=== PATIENT | male | born 1970 | race Caucasian/White ===

== ENCOUNTER 2021-02-27 11:34 | Inpatient (IN) | payer BC ==
[2021-02-27] MEDS ORDERED: Sodium Chloride 0.9% 10 ML Syringe FLUSH PRN (12:14)
[2021-02-27] MEDS ORDERED: Ondansetron 4 MG/2 ML SDV IVPUSH ONE (12:56)
[2021-02-27] MEDS ORDERED: Dexamethasone 4 MG Tab PO ONE (12:56)
--- NOTE | 2021-02-27 13:38 | CR ---
Chest: Portable view of the chest was obtained. Comparison: No prior chest imaging is available. Patchy areas of increased density are seen peripherally within the right upper and right lower lung. Left lung shows minimal density. Heart size and mediastinum are normal. Bony structure shows nothing acute. Impression: 1. Findings compatible with mild COVID pneumonia. Diagnostic code #3
--- NOTE | 2021-02-27 13:54 | EDM.PDOC ---
ED HPI GENERAL MEDICAL PROBLEM - General Chief Complaint: Respiratory Problem Stated Complaint: COVID POSITIVE/WORSENING SYMPTOMS Time Seen by Provider: 02/27/21 12:13 Source of Information: Reports: Patient, RN Notes Reviewed History Limitations: Reports: No Limitations - History of Present Illness INITIAL COMMENTS - FREE TEXT/NARRATIVE: Patient is a 50-year-old male presenting to the emergency department with complaints of worsening of Covid symptoms. Reports that he began to develop symptoms of Covid last weekend. He was tested earlier this week and found to be Covid positive. He reports body aches, subjective fever, nausea, cough, and shortness of breath. Reports that he has not been able to eat or drink much for the last few days. He has not been prescribed any medications previously for treatment of COVID-19. He did not receive his Covid vaccination. Patient denies any chronic underlying medical conditions. Arrival to ER, patient was found to be hypoxic with an oxygen saturation of 83 to 84% on room air. He was slightly tachypneic at 22. Vital signs were otherwise well. Triage nurse placed the patient on 2 L of oxygen he is currently saturating in the low 90s. 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 Generalized Pain Score (Numeric/FACES): 9 Headache Pain Score (Numeric/FACES): 0 - Related Data Allergies Allergy/AdvReac Type Severity Reaction Status Date / Time amoxicillin Allergy Other Verified 02/27/21 12:11 Penicillins Allergy Other Verified 02/27/21 12:11 Home Meds: Home Meds Allopurinol [Zyloprim] 300 mg PO DAILY 02/27/21 [History] Past Medical History - Past Health History Medical/Surgical History: Denies Medical/Surgical History Musculoskeletal History: Reports: Gout - Infectious Disease History Infectious Disease History: Reports: Novel Coronavirus Social & Family History - Tobacco Use Tobacco Use Status *Q: Never Tobacco User Second Hand Smoke Exposure: No - Caffeine Use Caffeine Use: Reports: None - Recreational Drug Use Recreational Drug Use: No ED ROS GENERAL - Review of Systems Review Of Systems: See Below Constitutional: Reports: Fever, Chills, Decreased Appetite HEENT: Reports: No Symptoms Respiratory: Reports: Shortness of Breath, Cough Cardiovascular: Reports: No Symptoms Endocrine: Reports: No Symptoms GI/Abdominal: Reports: Nausea. Denies: Abdominal Pain, Diarrhea, Vomiting : Reports: No Symptoms Musculoskeletal: Reports: Other (generalized body aches) Skin: Reports: No Symptoms Neurological: Reports: No Symptoms Psychiatric: Reports: No Symptoms Hematologic/Lymphatic: Reports: No Symptoms Immunologic: Reports: No Symptoms ED EXAM, GENERAL - Physical Exam Exam: See Below Exam Limited By: No Limitations General Appearance: Alert, WD/WN, No Apparent Distress Respiratory/Chest: No Respiratory Distress, No Accessory Muscle Use, Chest Non- Tender, Crackles (faint fine crackles to bilateral bases) Cardiovascular: Normal Peripheral Pulses, Regular Rate, Rhythm, No Edema, No Gallop, No JVD, No Murmur, No Rub GI/Abdominal: Normal Bowel Sounds, Soft, Non-Tender, No Organomegaly, No Distention, No Abnormal Bruit, No Mass Neurological: Alert, Oriented, CN II-XII Intact, Normal Cognition, Normal Gait, Normal Reflexes, No Motor/Sensory Deficits Psychiatric: Normal Affect, Normal Mood Skin Exam: Warm, Dry, Intact, Normal Color, No Rash #1 Interpretation EKG Date: 02/27/21 Time: 12:22 Rhythm: NSR Rate (Beats/Min): 91 Amonate: Normal P-Wave: Present QRS: Normal ST-T: Normal QT: Normal Course - Vital Signs Last Recorded V/S: Last Vital Signs Temp 97.9 F 03/01/21 08:15 Pulse 66 03/01/21 08:15 Resp 20 03/01/21 08:15 BP 117/82 03/01/21 08:15 Pulse Ox 92 L 03/01/21 05:33 - Orders/Labs/Meds Orders: Medication Orders Acetaminophen (Acetaminophen 325 Mg Tab) 650 mg PO Q4H PRN PRN Reason: Pain (Mild 1-3)/fever Last Admin: 02/27/21 15:59 Dose: 650 mg Documented by: ASHER Albuterol/Ipratropium (Albuterol/Ipratropium 3.0-0.5 Mg/3 Ml Neb Soln) 3 ml NEB Q4H PRN PRN Reason: Shortness Of Breath/wheezing Allopurinol (Allopurinol 300 Mg Tab) 300 mg PO DAILY AURELIA Last Admin: 03/01/21 08:00 Dose: 300 mg Documented by: Admin: 02/28/21 10:52 Dose: Not Given Documented by: ASHER Dexamethasone (Dexamethasone 4 Mg Tab) 6 mg PO DAILY [facility] Last Admin: 03/01/21 08:01 Dose: 6 mg Documented by: Admin: 02/28/21 10:52 Dose: Not Given Documented by: ASHER Docusate Sodium (Docusate Sodium 100 Mg Cap) 100 mg PO BID PRN PRN Reason: Constipation Enoxaparin Sodium (Enoxaparin 40 Mg/0.4 Ml Syringe) 40 mg SUBCUT DAILY [facility] Last Admin: 03/01/21 08:01 Dose: 40 mg Documented by: Admin: 02/28/21 10:52 Dose: Not Given Documented by: Admin: 02/27/21 16:00 Dose: 40 mg Documented by: ASHER Remdesivir 100 mg/ Sodium (Chloride) 100 mls @ 100 mls/hr IV Q24H [facility] Stop: 03/03/21 16:59 Last Admin: 03/01/21 12:05 Dose: 100 mls/hr Documented by: Infusion: 02/28/21 17:36 Dose: 100 mls/hr Documented by: Admin: 02/28/21 16:36 Dose: 100 mls/hr Documented by: SHABANA Azithromycin 500 mg/ Sodium (Chloride) 250 mls @ 250 mls/hr IV Q24H [facility] Last Admin: 03/01/21 13:19 Dose: 250 mls/hr Documented by: Infusion: 02/28/21 18:45 Dose: 250 mls/hr Documented by: Admin: 02/28/21 17:45 Dose: 250 mls/hr Documented by: Infusion: 02/27/21 19:10 Dose: 250 mls/hr Documented by: Admin: 02/27/21 18:10 Dose: 250 mls/hr Documented by: ASHER Insulin Human Lispro (Insulin Lispro 100 Unit/Ml 10 Ml Vial) 0 unit SUBCUT QIDACANDBED [facility]; Protocol Last Admin: 03/01/21 11:44 Dose: 6 units Documented by: Admin: 03/01/21 07:59 Dose: 4 units Documented by: Admin: 02/28/21 21:38 Dose: 8 units Documented by: Admin: 02/28/21 16:59 Dose: 10 units Documented by: SHABANA Metformin HCl (Metformin 500 Mg Tab) 500 mg PO BIDMEALS [facility] Last Admin: 03/01/21 06:17 Dose: Not Given Documented by: Admin: 03/01/21 05:36 Dose: 500 mg Documented by: Admin: 02/28/21 16:58 Dose: 500 mg Documented by: SHABANA Ondansetron HCl (Ondansetron 4 Mg Tab.Dis) 4 mg PO Q4H PRN PRN Reason: nausea, able to take PO Last Admin: 02/27/21 16:00 Dose: 4 mg Documented by: ASHER Oxycodone HCl (Oxycodone 5 Mg Tab) 5 mg PO Q4H PRN PRN Reason: Pain (moderate 4-6) Sodium Chloride (Sodium Chloride 0.9% 10 Ml Syringe) 10 ml FLUSH ASDIRECTED PRN PRN Reason: Keep Vein Open Last Admin: 02/27/21 12:57 Dose: 10 ml Documented by: VIKAS Temazepam (Temazepam 15 Mg Cap) 15 mg PO BEDTIME PRN PRN Reason: Sleep Last Admin: 02/28/21 21:39 Dose: 15 mg Documented by: MARKY Zinc Sulfate (Zinc Sulfate 220 Mg Cap) 220 mg PO DAILY [facility] Last Admin: 03/01/21 08:00 Dose: 220 mg Documented by: Admin: 02/28/21 10:52 Dose: Not Given Documented by: ASHER Labs: Laboratory Tests 02/27/21 02/27/21 02/27/21 Range/Units 10:30 10:30 10:30 WBC 6.36 (4.23-9.07) K/mm3 RBC 5.22 (4.63-6.08) M/mm3 Hgb 16.0 (13.7-17.5) gm/dl Hct 46.6 (40.1-51.0) % MCV 89.3 (79.0-92.2) fl MCH 30.7 (25.7-32.2) pg MCHC 34.3 (32.2-35.5) g/dl RDW Std Deviation 42.7 (35.1-43.9) fL Plt Count 211 (163-337) K/mm3 MPV 9.6 (9.4-12.3) fl Neut % (Auto) 76.1 H (34.0-67.9) % Lymph % (Auto) 16.5 L (21.8-53.1) % Worth % (Auto) 6.9 (5.3-12.2) % Eos % (Auto) 0 L (0.8-7.0) Baso % (Auto) 0.3 (0.1-1.2) % Neut # (Auto) 4.84 (1.78-5.38) K/mm3 Lymph # (Auto) 1.05 L (1.32-3.57) K/mm3 Worth # (Auto) 0.44 (0.30-0.82) K/mm3 Eos # (Auto) 0.00 L (0.04-0.54) K/mm3 Baso # (Auto) 0.02 (0.01-0.08) K/mm3 Manual Slide Review Not Reportable D-Dimer, Quantitative 0.26 (0.19-0.50) mg/L Sodium 131 L (136-145) mEq/L Potassium 4.2 (3.5-5.1) mEq/L Chloride 93 L (98-107) mEq/L Carbon Dioxide 30 (21-32) mEq/L Anion Gap 12.2 (5-15) BUN 12 (7-18) mg/dL Creatinine 1.2 (0.7-1.3) mg/dL Est Cr Clr Drug Dosing 80.83 mL/min Estimated GFR (MDRD) > 60 (>60) mL/min BUN/Creatinine Ratio 10.0 L (14-18) Glucose 224 H (70-99) mg/dL Calcium 8.6 (8.5-10.1) mg/dL Total Bilirubin 0.5 (0.2-1.0) mg/dL AST 39 H (15-37) U/L ALT 66 H (16-63) U/L Alkaline Phosphatase 77 (46-116) U/L Troponin I < 0.017 (0.00-0.056) ng/mL C-Reactive Protein 7.5 H* (<1.0) mg/dL NT-Pro-B Natriuret Pep (0-125) pg/mL Total Protein 7.9 (6.4-8.2) g/dl Albumin 3.7 (3.4-5.0) g/dl Globulin 4.2 gm/dL Albumin/Globulin Ratio 0.9 L (1-2) SARS-CoV-2 RNA (DAYRON) (NEGATIVE) 02/27/21 02/27/21 Range/Units 10:30 10:30 WBC (4.23-9.07) K/mm3 RBC (4.63-6.08) M/mm3 Hgb (13.7-17.5) gm/dl Hct (40.1-51.0) % MCV (79.0-92.2) fl MCH (25.7-32.2) pg MCHC (32.2-35.5) g/dl RDW Std Deviation (35.1-43.9) fL Plt Count (163-337) K/mm3 MPV (9.4-12.3) fl Neut % (Auto) (34.0-67.9) % Lymph % (Auto) (21.8-53.1) % Worth % (Auto) (5.3-12.2) % Eos % (Auto) (0.8-7.0) Baso % (Auto) (0.1-1.2) % Neut # (Auto) (1.78-5.38) K/mm3 Lymph # (Auto) (1.32-3.57) K/mm3 Worth # (Auto) (0.30-0.82) K/mm3 Eos # (Auto) (0.04-0.54) K/mm3 Baso # (Auto) (0.01-0.08) K/mm3 Manual Slide Review D-Dimer, Quantitative (0.19-0.50) mg/L Sodium (136-145) mEq/L Potassium (3.5-5.1) mEq/L Chloride (98-107) mEq/L Carbon Dioxide (21-32) mEq/L Anion Gap (5-15) BUN (7-18) mg/dL Creatinine (0.7-1.3) mg/dL Est Cr Clr Drug Dosing mL/min Estimated GFR (MDRD) (>60) mL/min BUN/Creatinine Ratio (14-18) Glucose (70-99) mg/dL Calcium (8.5-10.1) mg/dL Total Bilirubin (0.2-1.0) mg/dL AST (15-37) U/L ALT (16-63) U/L Alkaline Phosphatase (46-116) U/L Troponin I (0.00-0.056) ng/mL C-Reactive Protein (<1.0) mg/dL NT-Pro-B Natriuret Pep 28 (0-125) pg/mL Total Protein (6.4-8.2) g/dl Albumin (3.4-5.0) g/dl Globulin gm/dL Albumin/Globulin Ratio (1-2) SARS-CoV-2 RNA (DAYRON) Positive H (NEGATIVE) Meds: Medications Generic Name Dose Route Start Last Admin Trade Name Freq PRN Reason Stop Dose Admin Acetaminophen 650 mg 02/27/21 14:19 02/27/21 15:59 Acetaminophen 325 Mg Tab PO 650 mg Q4H PRN Administration Pain (Mild 1-3)/fever Albuterol/Ipratropium 3 ml 02/27/21 14:19 Albuterol/Ipratropium 3.0-0.5 Mg/3 Ml Neb Soln NEB Q4H PRN Shortness Of Breath/wheezing Allopurinol 300 mg 02/28/21 09:00 03/01/21 08:00 Allopurinol 300 Mg Tab PO 300 mg DAILY AURELIA Administration Dexamethasone 6 mg 02/28/21 09:00 03/01/21 08:01 Dexamethasone 4 Mg Tab PO 6 mg DAILY AURELIA Administration Docusate Sodium 100 mg 02/27/21 14:19 Docusate Sodium 100 Mg Cap PO BID PRN Constipation Enoxaparin Sodium 40 mg 02/27/21 16:00 03/01/21 08:01 Enoxaparin 40 Mg/0.4 Ml Syringe SUBCUT 40 mg DAILY AURELIA Administration Remdesivir 100 mg/ Sodium 100 mls @ 100 mls/hr 02/28/21 16:00 03/01/21 12:05 Chloride IV 03/03/21 16:59 100 mls/hr Q24H AURELIA Administration Azithromycin 500 mg/ Sodium 250 mls @ 250 mls/hr 02/27/21 17:00 03/01/21 13:19 Chloride IV 250 mls/hr Q24H AURELIA Administration Insulin Human Lispro 0 unit 02/28/21 17:00 03/01/21 11:44 Insulin Lispro 100 Unit/Ml 10 Ml Vial SUBCUT 6 units QIDACANDBED AURELIA Administration Protocol Metformin HCl 500 mg 02/28/21 17:00 03/01/21 06:17 Metformin 500 Mg Tab PO Not Given BIDMEALS AURELIA Ondansetron HCl 4 mg 02/27/21 14:19 02/27/21 16:00 Ondansetron 4 Mg Tab.Dis PO 4 mg Q4H PRN Administration nausea, able to take PO Oxycodone HCl 5 mg 02/27/21 14:19 Oxycodone 5 Mg Tab PO Q4H PRN Pain (moderate 4-6) Sodium Chloride 10 ml 02/27/21 12:14 02/27/21 12:57 Sodium Chloride 0.9% 10 Ml Syringe FLUSH 10 ml ASDIRECTED PRN Administration Keep Vein Open Temazepam 15 mg 02/27/21 21:00 02/28/21 21:39 Temazepam 15 Mg Cap PO 15 mg BEDTIME PRN Administration Sleep Zinc Sulfate 220 mg 02/28/21 09:00 03/01/21 08:00 Zinc Sulfate 220 Mg Cap PO 220 mg DAILY AURELIA Administration Discontinued Medications Generic Name Dose Route Start Last Admin Trade Name Freq PRN Reason Stop Dose Admin Dexamethasone 6 mg 02/27/21 12:56 02/27/21 13:15 Dexamethasone 4 Mg Tab PO 02/27/21 12:57 6 mg ONETIME ONE Administration Remdesivir 200 mg/ Sodium 250 mls @ 250 mls/hr 02/27/21 15:30 02/27/21 16:24 Chloride IV 02/27/21 16:29 250 mls/hr ONETIME ONE Administration Lactated Ringer's 1,000 mls @ 125 mls/hr 02/27/21 14:30 02/28/21 01:28 Ringers, Lactated IV 125 mls/hr ASDIRECTED AURELIA Administration Lactated Ringer's 1,000 mls @ 75 mls/hr 02/28/21 14:00 02/28/21 10:00 Ringers, Lactated IV 75 mls/hr ASDIRECTED AURELIA Administration Morphine Sulfate 2 mg 02/27/21 14:19 Morphine 2 Mg/Ml Syringe IVPUSH 02/28/21 14:19 Q2H PRN Pain (severe 7-10) Ondansetron HCl 4 mg 02/27/21 12:56 02/27/21 13:15 Ondansetron 4 Mg/2 Ml Sdv IVPUSH 02/27/21 12:57 4 mg ONETIME ONE Administration - Re-Assessments/Exams Free Text/Narrative Re-Assessment/Exam: Patient is a 50-year-old male presenting to the emergency department complaints of worsening Covid symptoms. He was found to be hypoxic on arrival to ER with a saturation of 83 to 84%. The time my exam, he was saturating 91% on 2 L. To turn his oxygen up to 3 L he is currently saturating around 95%. On exam, he has faint crackles to his bilateral lung bases. Exam is otherwise unremarkable. Have ordered blood work, chest x-ray, EKG. I will give him dexamethasone 6 mg p.o. as well as Zofran 4 mg IV. 02/27/21 14:00 Hematology is significant for sodium 131, chloride 93, glucose 224, AST 39, ALT 66, CRP 7.5. Chest x-ray shows bilateral Covid pneumonia. Patient is currently saturating 93% on 3 L of oxygen by nasal cannula. Case was discussed with hospitalist, Dr. Vang. He is accepted the patient for admission. Departure - Departure Time of Disposition: 14:00 Disposition: Admitted As Inpatient 66 Condition: Good Clinical Impression: Pneumonia due to 2019-nCoV, Hypoxemia - Discharge Information Sepsis Event Note (ED) - Evaluation Sepsis Screening Result: No Definite Risk
[2021-02-27] MEDS ORDERED: Docusate Sodium 100 MG Cap PO PRN (14:19)
[2021-02-27] MEDS ORDERED: Morphine 2 MG/ML SYRINGE IVPUSH PRN (14:19)
[2021-02-27] MEDS ORDERED: Acetaminophen 325 MG Tab PO PRN (14:19)
[2021-02-27] MEDS ORDERED: oxyCODONE 5 MG Tab PO PRN (14:19)
[2021-02-27] MEDS ORDERED: Albuterol/Ipratropium 3.0-0.5 MG/3 ML Neb Soln NEB PRN (14:19)
[2021-02-27] MEDS ORDERED: Ondansetron 4 MG Tab.DIS PO PRN (14:19)
--- NOTE | 2021-02-27 14:26 | PCM.HP.2 ---
H&P History of Present Illness - General Date of Service: 02/27/21 Admit Problem/Dx: Admission Diagnosis/Problem Admission Diagnosis/Problem Pneumonia, COVID-19, acute respiratory failure Source of Information: Patient History Limitations: Reports: No Limitations - History of Present Illness Initial Comments - Free Text/Narative: The patient is an otherwise healthy 50-year-old gentleman who tested positive at home for COVID-19. Since that time patient has gotten progressively worse. He has been complaining of more fatigue. The patient also says that he has been feeling weak with severe nausea and vomiting. He also has been complaining of sinus pain and pressure to accompany this. The patient says that he has also had fever and chills associated with this. The patient says that he is not getting any better. He also says that he has been unable to keep anything down because of the nausea and vomiting. He says he is thirsty. The patient is only taking medication for his chronic gout.. Onset of Symptoms: Reports: Gradual Duration of Symptoms: Reports: Week(s):, Getting Worse Location: Reports: Generalized Quality: Reports: Ache, Stabbing Improves with: Reports: Rest Worsens with: Reports: Eating, Movement Context: Reports: Sick Contact (Patient's is sick with COVID-19) Associated Symptoms: Reports: Cough, Fever/Chills, Headaches, Nausea/Vomiting, Shortness of Breath, Weakness Generalized Pain Score (Numeric/FACES): 9 - Related Data Allergies/Adverse Reactions: Allergies Allergy/AdvReac Type Severity Reaction Status Date / Time amoxicillin Allergy Other Verified 02/27/21 12:11 Penicillins Allergy Other Verified 02/27/21 12:11 Home Medications: Home Meds Allopurinol [Zyloprim] 300 mg PO DAILY 02/27/21 [History] Past Medical History - Past Health History Medical/Surgical History: Denies Medical/Surgical History HEENT History: Reports: None Cardiovascular History: Reports: None Respiratory History: Reports: None Gastrointestinal History: Reports: None Genitourinary History: Reports: None Musculoskeletal History: Reports: Gout Neurological History: Reports: None Psychiatric History: Reports: None Endocrine/Metabolic History: Reports: None - Infectious Disease History Infectious Disease History: Reports: Novel Coronavirus Social & Family History - Tobacco Use Tobacco Use Status *Q: Never Tobacco User Second Hand Smoke Exposure: No - Caffeine Use Caffeine Use: Reports: None - Alcohol Use Alcohol Use History: Yes Days Per Week of Alcohol Use: 5 Alcohol Use in Last Twelve Months: Yes - Recreational Drug Use Recreational Drug Use: No - Living Situation & Occupation Living situation: Reports: , with Spouse Occupation: Employed H&P Review of Systems - Review of Systems: Review Of Systems: See Below General: Reports: Fever, Chills, Weakness, Decreased Appetite HEENT: Reports: Sore Throat, Other (Dry mouth, thirsty) Pulmonary: Reports: Shortness of Breath, Cough Cardiovascular: Reports: No Symptoms Gastrointestinal: Reports: Abdominal Pain, Decreased Appetite, Nausea, Vomiting Genitourinary: Reports: No Symptoms Musculoskeletal: Reports: Other (Generalized aching) Skin: Reports: No Symptoms Psychiatric: Reports: No Symptoms Neurological: Reports: No Symptoms Hematologic/Lymphatic: Reports: No Symptoms Immunologic: Reports: No Symptoms Exam - Exam Exam: See Below - Vital Signs Vital Signs: Last Vital Signs Temp 36.9 C 02/27/21 12:05 Pulse 98 02/27/21 12:05 Resp 22 H 02/27/21 12:05 BP 128/87 02/27/21 12:05 Pulse Ox 84 L 02/27/21 12:05 Weight: 131.542 kg - Exam Quality Assessment: Supplemental Oxygen. No: DVT Prophylaxis General: Alert, Oriented, Cooperative, Mild Distress HEENT: EACs Clear, EOMI, Hearing Intact, Nares Patent, PERRLA. No: Conjunctiva Clear (Conjunctiva inflamed), Mucosa Moist & [place] (Very dry), Posterior Pharynx Clear (Very dry) Neck: Supple, Trachea Midline Lungs: Decreased Breath Sounds, Crackles (Diffuse) Cardiovascular: Regular Rate, Tachycardia GI/Abdominal Exam: Normal Bowel Sounds, Soft, Non-Tender, No Distention (Male) Exam: Deferred Rectal (Males) Exam: Deferred Back Exam: Normal Inspection, Full Range of Motion Extremities: Normal Inspection, Normal Range of Motion, No Pedal Edema Skin: Warm, Intact, Moist Neurological: Cranial Nerves Intact, Normal Speech, Normal Tone Neuro Extensive - Mental Status: Alert, Oriented x3, Normal Mood/Affect, Memory Intact Psychiatric: Alert, Normal Affect, Normal Mood - Patient Data Lab Results Last 24 hrs: Laboratory Results - last 24 hr 02/27/21 02/27/21 02/27/21 Range/Units 10:30 10:30 10:30 WBC 6.36 (4.23-9.07) K/mm3 RBC 5.22 (4.63-6.08) M/mm3 Hgb 16.0 (13.7-17.5) gm/dl Hct 46.6 (40.1-51.0) % MCV 89.3 (79.0-92.2) fl MCH 30.7 (25.7-32.2) pg MCHC 34.3 (32.2-35.5) g/dl RDW Std Deviation 42.7 (35.1-43.9) fL Plt Count 211 (163-337) K/mm3 MPV 9.6 (9.4-12.3) fl Neut % (Auto) 76.1 H (34.0-67.9) % Lymph % (Auto) 16.5 L (21.8-53.1) % Tyler % (Auto) 6.9 (5.3-12.2) % Eos % (Auto) 0 L (0.8-7.0) Baso % (Auto) 0.3 (0.1-1.2) % Neut # (Auto) 4.84 (1.78-5.38) K/mm3 Lymph # (Auto) 1.05 L (1.32-3.57) K/mm3 Tyler # (Auto) 0.44 (0.30-0.82) K/mm3 Eos # (Auto) 0.00 L (0.04-0.54) K/mm3 Baso # (Auto) 0.02 (0.01-0.08) K/mm3 D-Dimer, Quantitative 0.26 (0.19-0.50) mg/L Sodium 131 L (136-145) mEq/L Potassium 4.2 (3.5-5.1) mEq/L Chloride 93 L (98-107) mEq/L Carbon Dioxide 30 (21-32) mEq/L Anion Gap 12.2 (5-15) BUN 12 (7-18) mg/dL Creatinine 1.2 (0.7-1.3) mg/dL Est Cr Clr Drug Dosing 80.83 mL/min Estimated GFR (MDRD) > 60 (>60) mL/min BUN/Creatinine Ratio 10.0 L (14-18) Glucose 224 H (70-99) mg/dL Calcium 8.6 (8.5-10.1) mg/dL Total Bilirubin 0.5 (0.2-1.0) mg/dL AST 39 H (15-37) U/L ALT 66 H (16-63) U/L Alkaline Phosphatase 77 (46-116) U/L Troponin I < 0.017 (0.00-0.056) ng/mL C-Reactive Protein 7.5 H* (<1.0) mg/dL NT-Pro-B Natriuret Pep (0-125) pg/mL Total Protein 7.9 (6.4-8.2) g/dl Albumin 3.7 (3.4-5.0) g/dl Globulin 4.2 gm/dL Albumin/Globulin Ratio 0.9 L (1-2) SARS-CoV-2 RNA (DAYRON) (NEGATIVE) 02/27/21 02/27/21 Range/Units 10:30 10:30 WBC (4.23-9.07) K/mm3 RBC (4.63-6.08) M/mm3 Hgb (13.7-17.5) gm/dl Hct (40.1-51.0) % MCV (79.0-92.2) fl MCH (25.7-32.2) pg MCHC (32.2-35.5) g/dl RDW Std Deviation (35.1-43.9) fL Plt Count (163-337) K/mm3 MPV (9.4-12.3) fl Neut % (Auto) (34.0-67.9) % Lymph % (Auto) (21.8-53.1) % Tyler % (Auto) (5.3-12.2) % Eos % (Auto) (0.8-7.0) Baso % (Auto) (0.1-1.2) % Neut # (Auto) (1.78-5.38) K/mm3 Lymph # (Auto) (1.32-3.57) K/mm3 Tyler # (Auto) (0.30-0.82) K/mm3 Eos # (Auto) (0.04-0.54) K/mm3 Baso # (Auto) (0.01-0.08) K/mm3 D-Dimer, Quantitative (0.19-0.50) mg/L Sodium (136-145) mEq/L Potassium (3.5-5.1) mEq/L Chloride (98-107) mEq/L Carbon Dioxide (21-32) mEq/L Anion Gap (5-15) BUN (7-18) mg/dL Creatinine (0.7-1.3) mg/dL Est Cr Clr Drug Dosing mL/min Estimated GFR (MDRD) (>60) mL/min BUN/Creatinine Ratio (14-18) Glucose (70-99) mg/dL Calcium (8.5-10.1) mg/dL Total Bilirubin (0.2-1.0) mg/dL AST (15-37) U/L ALT (16-63) U/L Alkaline Phosphatase (46-116) U/L Troponin I (0.00-0.056) ng/mL C-Reactive Protein (<1.0) mg/dL NT-Pro-B Natriuret Pep 28 (0-125) pg/mL Total Protein (6.4-8.2) g/dl Albumin (3.4-5.0) g/dl Globulin gm/dL Albumin/Globulin Ratio (1-2) SARS-CoV-2 RNA (DAYRON) Positive H (NEGATIVE) Result Diagrams: 02/27/21 10:30 02/27/21 10:30 Sepsis Event Note - Evaluation Sepsis Screening Result: No Definite Risk - Focused Exam Vital Signs: Vital Signs Temp Pulse Resp BP Pulse Ox 02/27/21 12:05 36.9 C 98 22 H 128/87 84 L - Problem List (1) Acute respiratory failure due to COVID-19 SNOMED Code(s): 604791248 ICD Code: U07.1 - COVID-19; J96.00 - ACUTE RESPIRATORY FAILURE, UNSP W HYPOXIA OR HYPERCAPNIA Status: Acute Priority: High Current Visit: Yes (2) Pneumonia due to 2019-nCoV SNOMED Code(s): 264053590917418060 ICD Code: U07.1 - COVID-19; J12.82 - PNEUMONIA DUE TO CORONAVIRUS DISEASE 2019 Status: Acute Priority: High Current Visit: Yes (3) Hypovolemia associated with vomiting SNOMED Code(s): 35461021, 824723398 ICD Code: E86.1 - HYPOVOLEMIA Status: Acute Priority: High Current Visit: Yes (4) Hyponatremia SNOMED Code(s): 12165618 ICD Code: E87.1 - HYPO-OSMOLALITY AND HYPONATREMIA Status: Acute Priority: High Current Visit: Yes (5) Gout SNOMED Code(s): 91643254 ICD Code: M10.9 - GOUT, UNSPECIFIED Status: Chronic Priority: Medium Current Visit: Yes Qualifiers: Gout site: unspecified site Gout etiology: idiopathic Chronicity: chronic Presence of tophus: without tophus Qualified Code(s): M1A.00X0 - Idiopathic chronic gout, unspecified site, without tophus (tophi) Problem List Initiated/Reviewed/Updated: Yes Orders Last 24hrs: Active Orders 24 hr Category Date Time Status Patient Status [ADT] Routine ADT 02/27/21 14:19 Active Cardiac Monitoring [RC] CONTINUOUS Care 02/27/21 14:19 Active Oxygen Therapy [RC] PRN Care 02/27/21 14:19 Active Peripheral IV Care [RC] . DIRECTED Care 02/27/21 12:15 Active RT Aerosol Therapy [RC] ASDIRECTED Care 02/27/21 14:19 Active Up ad Kaitlin [RC] ASDIRECTED Care 02/27/21 14:19 Active VTE/DVT Education [RC] PER UNIT ROUTINE Care 02/27/21 14:19 Active Vital Signs [RC] Q4H Care 02/27/21 14:19 Active Regular Diet [DIET] Diet 02/27/21 Dinner Active C-REACTIVE PROTEIN [CHEM] AM Lab 02/28/21 05:11 Ordered CBC WITH AUTO DIFF [HEME] AM Lab 02/28/21 05:11 Ordered CBC WITH AUTO DIFF [HEME] Stat Lab 02/27/21 10:30 Results COMPREHENSIVE METABOLIC PN,CMP [CHEM] AM Lab 02/28/21 05:11 Ordered D-DIMER QUANTITATIVE [COAG] AM Lab 02/28/21 05:11 Ordered MAGNESIUM [CHEM] AM Lab 02/28/21 05:11 Ordered Acetaminophen [TylenoL] Med 02/27/21 14:19 Ordered 650 mg PO Q4H PRN Albuterol/Ipratropium [DuoNeb 3.0-0.5 MG/3 ML] Med 02/27/21 14:19 Ordered 3 ml NEB Q4H PRN Azithromycin [Zithromax] 500 mg Med 02/27/21 14:30 Ordered Sodium Chloride 0.9% [Normal Saline (AdvBag)] 250 ml IV Q24H Docusate Sodium [Colace] Med 02/27/21 14:19 Ordered 100 mg PO BID PRN Enoxaparin [Lovenox] Med 02/27/21 14:30 Ordered 40 mg SUBCUT DAILY Lactated Ringers @ 125 MLS/HR(1000ml Bag) Med 02/27/21 14:30 Ordered Lactated Ringers [Ringers, Lactated] 1,000 ml IV ASDIRECTED Morphine Med 02/27/21 14:19 Ordered 2 mg IVPUSH Q2H PRN Ondansetron [Zofran ODT] Med 02/27/21 14:19 Ordered 4 mg PO Q4H PRN Remdesivir 100 mg Med 02/28/21 14:30 Ordered Sodium Chloride 0.9% [Normal Saline] 100 ml IV Q24H Remdesivir 200 mg Med 02/27/21 14:19 Ordered Sodium Chloride 0.9% [Normal Saline] 250 ml IV ONETIME Sodium Chloride 0.9% [Saline Flush] Med 02/27/21 12:14 Active 10 ml FLUSH ASDIRECTED PRN Temazepam [Restoril] Med 02/27/21 14:19 Ordered 15 mg PO BEDTIME PRN Zinc Sulfate [Zincate] Med 02/28/21 09:00 Ordered 220 mg PO DAILY allopurinoL [Zyloprim] Med 02/28/21 09:00 Ordered 300 mg PO DAILY dexAMETHasone Med 02/28/21 09:00 Ordered 6 mg PO DAILY oxyCODONE Med 02/27/21 14:19 Ordered 5 mg PO Q4H PRN Peripheral IV Insertion Adult [OM.PC] Stat Oth 02/27/21 12:14 Ordered Resuscitation Status Routine Resus Stat 02/27/21 14:19 Ordered Medication Orders Acetaminophen (Acetaminophen 325 Mg Tab) 650 mg PO Q4H PRN PRN Reason: Pain (Mild 1-3)/fever Allopurinol (Allopurinol 300 Mg Tab) 300 mg PO DAILY AURELIA Enoxaparin Sodium (Enoxaparin 40 Mg/0.4 Ml Syringe) 40 mg SUBCUT DAILY AURELIA Oxycodone HCl (Oxycodone 5 Mg Tab) 5 mg PO Q4H PRN PRN Reason: Pain (moderate 4-6) Sodium Chloride (Sodium Chloride 0.9% 10 Ml Syringe) 10 ml FLUSH ASDIRECTED PRN PRN Reason: Keep Vein Open Last Admin: 02/27/21 12:57 Dose: 10 ml Documented by: VIKAS Assessment/Plan Comment:: Patient is a 50-year-old gentleman who has been admitted to acute hospitalization secondary to COVID-19 pneumonia. The patient will be started on remdesivir 200 mg IV x1 dose now followed by 100 mg IV for 4 doses. The patient also has been started on dexamethasone 6 mg p.o. daily. Because of the patient's dehydration and hyponatremia he will be started on lactated Ringer's at 125 mL/h. I have also ordered Zofran to help with his nausea and vomiting. He will be kept on a regular diet as tolerated. The patient also has been started on a azithromycin out of concern for superimposed bacterial infection over his COVID-19 pneumonia. The patient will be afforded DVT prophylaxis with the use of Lovenox. I have also ordered repeat laboratory studies for tomorrow. - Mortality Measure Prognosis:: Good
[2021-02-27] MEDS ORDERED: REMDESIVIR 200 MG in Sodium Chloride 0.9% 250 ML IV ONE (15:30)
[2021-02-27] MEDS: Enoxaparin 40 MG/0.4 ML Syringe SUBCUT SCH (16:00)
[2021-02-27] MEDS: Lactated Ringers 1,000 ML IV SCH (17:38)
[2021-02-27] MEDS: Azithromycin 500 MG in Sodium Chloride 0.9% 250 ML IV SCH (18:10)
[2021-02-27] MEDS ORDERED: Temazepam 15 MG Cap PO PRN (21:00)
[2021-02-28] MEDS: Lactated Ringers 1,000 ML IV SCH (01:28)
--- NOTE | 2021-02-28 07:30 | PCM.PN ---
- General Info Date of Service: 02/28/21 Admission Dx/Problem (Free Text): Admission Diagnosis/Problem Admission Diagnosis/Problem Pneumonia, COVID-19, acute respiratory failure Subjective Update: The patient is a 50-year-old gentleman who was admitted yesterday secondary to COVID-19 pneumonia. Patient says that he is doing better today. Patient has been breathing better. No further episodes of nausea or vomiting. The patient has denied any pain. Functional Status: Reports: Pain Controlled, Tolerating Diet - Review of Systems General: Reports: Weakness HEENT: Reports: No Symptoms Pulmonary: Reports: Shortness of Breath Cardiovascular: Reports: No Symptoms Gastrointestinal: Reports: No Symptoms Genitourinary: Reports: No Symptoms Musculoskeletal: Reports: No Symptoms Skin: Reports: No Symptoms Neurological: Reports: No Symptoms Psychiatric: Reports: No Symptoms - Patient Data Vitals - Most Recent: Last Vital Signs Temp 36.9 C 02/28/21 05:37 Pulse 69 02/28/21 05:38 Resp 20 02/28/21 05:37 BP 121/84 02/28/21 05:37 Pulse Ox 98 02/28/21 05:38 Weight - Most Recent: 89.539 kg I&O - Last 24 Hours: Intake & Output 02/27/21 02/28/21 02/28/21 22:59 06:59 14:59 Intake Total 2266 Output Total 1900 Balance 366 Lab Results Last 24 Hours: Laboratory Results - last 24 hr 02/27/21 02/27/21 02/27/21 Range/Units 10:30 10:30 10:30 WBC 6.36 (4.23-9.07) K/mm3 RBC 5.22 (4.63-6.08) M/mm3 Hgb 16.0 (13.7-17.5) gm/dl Hct 46.6 (40.1-51.0) % MCV 89.3 (79.0-92.2) fl MCH 30.7 (25.7-32.2) pg MCHC 34.3 (32.2-35.5) g/dl RDW Std Deviation 42.7 (35.1-43.9) fL Plt Count 211 (163-337) K/mm3 MPV 9.6 (9.4-12.3) fl Neut % (Auto) 76.1 H (34.0-67.9) % Lymph % (Auto) 16.5 L (21.8-53.1) % Garrett % (Auto) 6.9 (5.3-12.2) % Eos % (Auto) 0 L (0.8-7.0) Baso % (Auto) 0.3 (0.1-1.2) % Neut # (Auto) 4.84 (1.78-5.38) K/mm3 Lymph # (Auto) 1.05 L (1.32-3.57) K/mm3 Garrett # (Auto) 0.44 (0.30-0.82) K/mm3 Eos # (Auto) 0.00 L (0.04-0.54) K/mm3 Baso # (Auto) 0.02 (0.01-0.08) K/mm3 Manual Slide Review Not Reportable D-Dimer, Quantitative 0.26 (0.19-0.50) mg/L Sodium 131 L (136-145) mEq/L Potassium 4.2 (3.5-5.1) mEq/L Chloride 93 L (98-107) mEq/L Carbon Dioxide 30 (21-32) mEq/L Anion Gap 12.2 (5-15) BUN 12 (7-18) mg/dL Creatinine 1.2 (0.7-1.3) mg/dL Est Cr Clr Drug Dosing 80.83 mL/min Estimated GFR (MDRD) > 60 (>60) mL/min BUN/Creatinine Ratio 10.0 L (14-18) Glucose 224 H (70-99) mg/dL Calcium 8.6 (8.5-10.1) mg/dL Total Bilirubin 0.5 (0.2-1.0) mg/dL AST 39 H (15-37) U/L ALT 66 H (16-63) U/L Alkaline Phosphatase 77 (46-116) U/L Troponin I < 0.017 (0.00-0.056) ng/mL C-Reactive Protein 7.5 H* (<1.0) mg/dL NT-Pro-B Natriuret Pep (0-125) pg/mL Total Protein 7.9 (6.4-8.2) g/dl Albumin 3.7 (3.4-5.0) g/dl Globulin 4.2 gm/dL Albumin/Globulin Ratio 0.9 L (1-2) SARS-CoV-2 RNA ([facility]ON) (NEGATIVE) 02/27/21 02/27/21 Range/Units 10:30 10:30 WBC (4.23-9.07) K/mm3 RBC (4.63-6.08) M/mm3 Hgb (13.7-17.5) gm/dl Hct (40.1-51.0) % MCV (79.0-92.2) fl MCH (25.7-32.2) pg MCHC (32.2-35.5) g/dl RDW Std Deviation (35.1-43.9) fL Plt Count (163-337) K/mm3 MPV (9.4-12.3) fl Neut % (Auto) (34.0-67.9) % Lymph % (Auto) (21.8-53.1) % Garrett % (Auto) (5.3-12.2) % Eos % (Auto) (0.8-7.0) Baso % (Auto) (0.1-1.2) % Neut # (Auto) (1.78-5.38) K/mm3 Lymph # (Auto) (1.32-3.57) K/mm3 Garrett # (Auto) (0.30-0.82) K/mm3 Eos # (Auto) (0.04-0.54) K/mm3 Baso # (Auto) (0.01-0.08) K/mm3 Manual Slide Review D-Dimer, Quantitative (0.19-0.50) mg/L Sodium (136-145) mEq/L Potassium (3.5-5.1) mEq/L Chloride (98-107) mEq/L Carbon Dioxide (21-32) mEq/L Anion Gap (5-15) BUN (7-18) mg/dL Creatinine (0.7-1.3) mg/dL Est Cr Clr Drug Dosing mL/min Estimated GFR (MDRD) (>60) mL/min BUN/Creatinine Ratio (14-18) Glucose (70-99) mg/dL Calcium (8.5-10.1) mg/dL Total Bilirubin (0.2-1.0) mg/dL AST (15-37) U/L ALT (16-63) U/L Alkaline Phosphatase (46-116) U/L Troponin I (0.00-0.056) ng/mL C-Reactive Protein (<1.0) mg/dL NT-Pro-B Natriuret Pep 28 (0-125) pg/mL Total Protein (6.4-8.2) g/dl Albumin (3.4-5.0) g/dl Globulin gm/dL Albumin/Globulin Ratio (1-2) SARS-CoV-2 RNA (DAYRON) Positive H (NEGATIVE) Med Orders - Current: Current Medications Acetaminophen (Acetaminophen 325 Mg Tab) 650 mg PO Q4H PRN PRN Reason: Pain (Mild 1-3)/fever Last Admin: 02/27/21 15:59 Dose: 650 mg Documented by: Albuterol/Ipratropium (Albuterol/Ipratropium 3.0-0.5 Mg/3 Ml Neb Soln) 3 ml NEB Q4H PRN PRN Reason: Shortness Of Breath/wheezing Allopurinol (Allopurinol 300 Mg Tab) 300 mg PO DAILY [facility] Dexamethasone (Dexamethasone 4 Mg Tab) 6 mg PO DAILY [facility] Docusate Sodium (Docusate Sodium 100 Mg Cap) 100 mg PO BID PRN PRN Reason: Constipation Enoxaparin Sodium (Enoxaparin 40 Mg/0.4 Ml Syringe) 40 mg SUBCUT DAILY [facility] Last Admin: 02/27/21 16:00 Dose: 40 mg Documented by: Remdesivir 100 mg/ Sodium (Chloride) 100 mls @ 100 mls/hr IV Q24H [facility] Stop: 03/03/21 16:59 Azithromycin 500 mg/ Sodium (Chloride) 250 mls @ 250 mls/hr IV Q24H [facility] Last Admin: 02/27/21 18:10 Dose: 250 mls/hr Documented by: Lactated Ringer's (Ringers, Lactated) 1,000 mls @ 125 mls/hr IV ASDIRECTED [facility] Last Admin: 02/28/21 01:28 Dose: 125 mls/hr Documented by: Morphine Sulfate (Morphine 2 Mg/Ml Syringe) 2 mg IVPUSH Q2H PRN PRN Reason: Pain (severe 7-10) Stop: 02/28/21 14:19 Ondansetron HCl (Ondansetron 4 Mg Tab.Dis) 4 mg PO Q4H PRN PRN Reason: nausea, able to take PO Last Admin: 02/27/21 16:00 Dose: 4 mg Documented by: Oxycodone HCl (Oxycodone 5 Mg Tab) 5 mg PO Q4H PRN PRN Reason: Pain (moderate 4-6) Sodium Chloride (Sodium Chloride 0.9% 10 Ml Syringe) 10 ml FLUSH ASDIRECTED PRN PRN Reason: Keep Vein Open Last Admin: 02/27/21 12:57 Dose: 10 ml Documented by: Temazepam (Temazepam 15 Mg Cap) 15 mg PO BEDTIME PRN PRN Reason: Sleep Zinc Sulfate (Zinc Sulfate 220 Mg Cap) 220 mg PO DAILY [facility] Discontinued Medications Dexamethasone (Dexamethasone 4 Mg Tab) 6 mg PO ONETIME ONE Stop: 02/27/21 12:57 Last Admin: 02/27/21 13:15 Dose: 6 mg Documented by: Remdesivir 200 mg/ Sodium (Chloride) 250 mls @ 250 mls/hr IV ONETIME ONE Stop: 02/27/21 16:29 Last Admin: 02/27/21 16:24 Dose: 250 mls/hr Documented by: Ondansetron HCl (Ondansetron 4 Mg/2 Ml Sdv) 4 mg IVPUSH ONETIME ONE Stop: 02/27/21 12:57 Last Admin: 02/27/21 13:15 Dose: 4 mg Documented by: - Exam Quality Assessment: Supplemental Oxygen, DVT Prophylaxis General: Alert, Oriented, Cooperative HEENT: Pupils Equal, Pupils Reactive, EOMI, Mucous Membr. Moist/[place] Neck: Supple, Trachea Midline Lungs: Decreased Breath Sounds, Crackles (Widely scattered) Cardiovascular: Regular Rate, Regular Rhythm GI/Abdominal Exam: Normal Bowel Sounds, Soft, Non-Tender, No Distention (Male) Exam: Deferred Back Exam: Normal Inspection, Full Range of Motion Extremities: Normal Inspection, Normal Range of Motion, No Pedal Edema Skin: Warm, Dry, Intact Neurological: No New Focal Deficit, Normal Gait, Normal Speech, Normal Tone Psy/Mental Status: Alert, Normal Affect - Patient Data Lab Results Last 24 hrs: Laboratory Results - last 24 hr 02/27/21 02/27/21 02/27/21 Range/Units 10:30 10:30 10:30 WBC 6.36 (4.23-9.07) K/mm3 RBC 5.22 (4.63-6.08) M/mm3 Hgb 16.0 (13.7-17.5) gm/dl Hct 46.6 (40.1-51.0) % MCV 89.3 (79.0-92.2) fl MCH 30.7 (25.7-32.2) pg MCHC 34.3 (32.2-35.5) g/dl RDW Std Deviation 42.7 (35.1-43.9) fL Plt Count 211 (163-337) K/mm3 MPV 9.6 (9.4-12.3) fl Neut % (Auto) 76.1 H (34.0-67.9) % Lymph % (Auto) 16.5 L (21.8-53.1) % Garrett % (Auto) 6.9 (5.3-12.2) % Eos % (Auto) 0 L (0.8-7.0) Baso % (Auto) 0.3 (0.1-1.2) % Neut # (Auto) 4.84 (1.78-5.38) K/mm3 Lymph # (Auto) 1.05 L (1.32-3.57) K/mm3 Garrett # (Auto) 0.44 (0.30-0.82) K/mm3 Eos # (Auto) 0.00 L (0.04-0.54) K/mm3 Baso # (Auto) 0.02 (0.01-0.08) K/mm3 Manual Slide Review Not Reportable D-Dimer, Quantitative 0.26 (0.19-0.50) mg/L Sodium 131 L (136-145) mEq/L Potassium 4.2 (3.5-5.1) mEq/L Chloride 93 L (98-107) mEq/L Carbon Dioxide 30 (21-32) mEq/L Anion Gap 12.2 (5-15) BUN 12 (7-18) mg/dL Creatinine 1.2 (0.7-1.3) mg/dL Est Cr Clr Drug Dosing 80.83 mL/min Estimated GFR (MDRD) > 60 (>60) mL/min BUN/Creatinine Ratio 10.0 L (14-18) Glucose 224 H (70-99) mg/dL Calcium 8.6 (8.5-10.1) mg/dL Total Bilirubin 0.5 (0.2-1.0) mg/dL AST 39 H (15-37) U/L ALT 66 H (16-63) U/L Alkaline Phosphatase 77 (46-116) U/L Troponin I < 0.017 (0.00-0.056) ng/mL C-Reactive Protein 7.5 H* (<1.0) mg/dL NT-Pro-B Natriuret Pep (0-125) pg/mL Total Protein 7.9 (6.4-8.2) g/dl Albumin 3.7 (3.4-5.0) g/dl Globulin 4.2 gm/dL Albumin/Globulin Ratio 0.9 L (1-2) SARS-CoV-2 RNA ([facility]ON) (NEGATIVE) 02/27/21 02/27/21 Range/Units 10:30 10:30 WBC (4.23-9.07) K/mm3 RBC (4.63-6.08) M/mm3 Hgb (13.7-17.5) gm/dl Hct (40.1-51.0) % MCV (79.0-92.2) fl MCH (25.7-32.2) pg MCHC (32.2-35.5) g/dl RDW Std Deviation (35.1-43.9) fL Plt Count (163-337) K/mm3 MPV (9.4-12.3) fl Neut % (Auto) (34.0-67.9) % Lymph % (Auto) (21.8-53.1) % Garrett % (Auto) (5.3-12.2) % Eos % (Auto) (0.8-7.0) Baso % (Auto) (0.1-1.2) % Neut # (Auto) (1.78-5.38) K/mm3 Lymph # (Auto) (1.32-3.57) K/mm3 Garrett # (Auto) (0.30-0.82) K/mm3 Eos # (Auto) (0.04-0.54) K/mm3 Baso # (Auto) (0.01-0.08) K/mm3 Manual Slide Review D-Dimer, Quantitative (0.19-0.50) mg/L Sodium (136-145) mEq/L Potassium (3.5-5.1) mEq/L Chloride (98-107) mEq/L Carbon Dioxide (21-32) mEq/L Anion Gap (5-15) BUN (7-18) mg/dL Creatinine (0.7-1.3) mg/dL Est Cr Clr Drug Dosing mL/min Estimated GFR (MDRD) (>60) mL/min BUN/Creatinine Ratio (14-18) Glucose (70-99) mg/dL Calcium (8.5-10.1) mg/dL Total Bilirubin (0.2-1.0) mg/dL AST (15-37) U/L ALT (16-63) U/L Alkaline Phosphatase (46-116) U/L Troponin I (0.00-0.056) ng/mL C-Reactive Protein (<1.0) mg/dL NT-Pro-B Natriuret Pep 28 (0-125) pg/mL Total Protein (6.4-8.2) g/dl Albumin (3.4-5.0) g/dl Globulin gm/dL Albumin/Globulin Ratio (1-2) SARS-CoV-2 RNA ([facility]ON) Positive H (NEGATIVE) Result Diagrams: 02/28/21 08:07 02/28/21 08:07 Sepsis Event Note - Evaluation Sepsis Screening Result: No Definite Risk - Focused Exam Vital Signs: Vital Signs Temp Pulse Pulse Resp BP Pulse Ox 02/28/21 05:38 69 98 02/28/21 05:37 36.9 C 20 121/84 02/28/21 01:31 36.8 C 70 16 117/94 H 93 L 02/27/21 21:37 36.9 C 70 16 119/66 94 L - Problem List & Annotations (1) Acute respiratory failure due to COVID-19 SNOMED Code(s): 774902261 Code(s): U07.1 - COVID-19; J96.00 - ACUTE RESPIRATORY FAILURE, UNSP W HYPOXIA OR HYPERCAPNIA Status: Acute Priority: High Current Visit: Yes (2) Pneumonia due to 2019-nCoV SNOMED Code(s): 858776601839041221 Code(s): U07.1 - COVID-19; J12.82 - PNEUMONIA DUE TO CORONAVIRUS DISEASE 2019 Status: Acute Priority: High Current Visit: Yes (3) Hypovolemia associated with vomiting SNOMED Code(s): 39648636, 247759645 Code(s): E86.1 - HYPOVOLEMIA Status: Acute Priority: High Current Visit: Yes (4) Hyponatremia SNOMED Code(s): 89178051 Code(s): E87.1 - HYPO-OSMOLALITY AND HYPONATREMIA Status: Acute Priority: High Current Visit: Yes (5) Gout SNOMED Code(s): 93405761 Code(s): M10.9 - GOUT, UNSPECIFIED Status: Chronic Priority: Medium Current Visit: Yes Qualifiers: Gout site: unspecified site Gout etiology: idiopathic Chronicity: chronic Presence of tophus: without tophus Qualified Code(s): M1A.00X0 - Idiopathic chronic gout, unspecified site, without tophus (tophi) - Problem List Review Problem List Initiated/Reviewed/Updated: Yes - My Orders Last 24 Hours: My Active Orders 02/27/21 14:19 Patient Status [ADT] Routine Cardiac Monitoring [RC] CONTINUOUS Oxygen Therapy [RC] PRN RT Aerosol Therapy [RC] ASDIRECTED Up ad Kaitlin [RC] ASDIRECTED VTE/DVT Education [RC] PER UNIT ROUTINE Vital Signs [RC] Q4HR Acetaminophen [TylenoL] 650 mg PO Q4H PRN Albuterol/Ipratropium [DuoNeb 3.0-0.5 MG/3 ML] 3 ml NEB Q4H PRN Docusate Sodium [Colace] 100 mg PO BID PRN Morphine 2 mg IVPUSH Q2H PRN Ondansetron [Zofran ODT] 4 mg PO Q4H PRN oxyCODONE 5 mg PO Q4H PRN Resuscitation Status Routine 02/27/21 14:30 Lactated Ringers [Ringers, Lactated] 1,000 ml IV ASDIRECTED 02/27/21 16:00 Enoxaparin [Lovenox] 40 mg SUBCUT DAILY 02/27/21 Dinner Regular Diet [DIET] Azithromycin [Zithromax] 500 mg Sodium Chloride 0.9% [Normal Saline (AdvBag)] 250 ml IV Q24H 02/27/21 21:00 Temazepam [Restoril] 15 mg PO BEDTIME PRN 02/28/21 05:11 C-REACTIVE PROTEIN [CHEM] AM CBC WITH AUTO DIFF [HEME] AM COMPREHENSIVE METABOLIC PN,CMP [CHEM] AM D-DIMER QUANTITATIVE [COAG] AM MAGNESIUM [CHEM] AM 02/28/21 09:00 Zinc Sulfate [Zincate] 220 mg PO DAILY allopurinoL [Zyloprim] 300 mg PO DAILY dexAMETHasone 6 mg PO DAILY 02/28/21 16:00 Remdesivir 100 mg Sodium Chloride 0.9% [Normal Saline] 100 ml IV Q24H - Assessment Assessment:: The patient is a 50-year-old gentleman who will be continued in hospitalization until final dose of remdesivir. The patient will have his oxygen titrated to help maintain his saturations around 92%. The patient is on steroids dexamethasone 6 mg p.o. daily. He also has DVT prophylaxis with the use of Lovenox 40 mg daily. The patient is also to continue his current diet as tolerated. The patient has been encouraged to ambulate. He should be appropriate for discharge in 3 to 4 days. - Plan Plan:: Patient is a 50-year-old gentleman who has been admitted to acute hospitalization secondary to COVID-19 pneumonia. The patient will be started on remdesivir 200 mg IV x1 dose now followed by 100 mg IV for 4 doses. The patient also has been started on dexamethasone 6 mg p.o. daily. Because of the patient's dehydration and hyponatremia he will be started on lactated Ringer's at 125 mL/h. I have also ordered Zofran to help with his nausea and vomiting. He will be kept on a regular diet as tolerated. The patient also has been started on a azithromycin out of concern for superimposed bacterial infection over his COVID-19 pneumonia. The patient will be afforded DVT prophylaxis with the use of Lovenox. I have also ordered repeat laboratory studies for tomorrow.
[2021-02-28] MEDS: Zinc Sulfate 220 MG Cap PO SCH (10:52)
[2021-02-28] MEDS: Enoxaparin 40 MG/0.4 ML Syringe SUBCUT SCH (10:52)
[2021-02-28] MEDS: Allopurinol 300 MG Tab PO SCH (10:52)
[2021-02-28] MEDS: Dexamethasone 4 MG Tab PO SCH (10:52)
[2021-02-28] MEDS ORDERED: Lactated Ringers 1,000 ML IV SCH (14:00)
[2021-02-28 14:06] LABS: HEMOGLOBIN A1C 9.5 %
[2021-02-28] MEDS: REMDESIVIR 100 MG in Sodium Chloride 0.9% 100 ML IV SCH (16:36)
[2021-02-28] MEDS: metFORMIN 500 MG Tab PO SCH (16:58)
[2021-02-28] MEDS: Insulin Lispro 100 UNIT/ML 10 ML Vial SUBCUT SCH ×2 (16:59→21:38)
[2021-02-28] MEDS: Azithromycin 500 MG in Sodium Chloride 0.9% 250 ML IV SCH (17:45)
[2021-03-01] MEDS: metFORMIN 500 MG Tab PO SCH ×2 (05:36→06:17)
--- NOTE | 2021-03-01 07:09 | PCM.PN ---
- General Info Date of Service: 03/01/21 Admission Dx/Problem (Free Text): Admission Diagnosis/Problem Admission Diagnosis/Problem Pneumonia, COVID-19, acute respiratory failure Subjective Update: The patient is a 50-year-old gentleman who had been admitted to acute hospitalization on February 27, 2021 due to worsening COVID-19 symptoms. The patient is currently on room air. He was newly diagnosed with diabetes mellitus type 2 as his hemoglobin A1c was tested at 9.5%. The patient reports a history of prediabetes. She has been tolerating remdesivir. His blood sugars have been elevated because of steroid usage. The patient is doing okay. He says he has no pain. The patient says that his has been Covid positive as well and she has been having a hard time with her mother who is on hospice care and is at home. The patient has reported that he wants to go home today to help take care of his . The patient has been advised against this. Functional Status: Reports: Pain Controlled, Tolerating Diet - Review of Systems General: Reports: No Symptoms HEENT: Reports: No Symptoms Pulmonary: Reports: No Symptoms Cardiovascular: Reports: No Symptoms Gastrointestinal: Reports: No Symptoms Genitourinary: Reports: No Symptoms Musculoskeletal: Reports: No Symptoms Skin: Reports: No Symptoms Neurological: Reports: No Symptoms Psychiatric: Reports: No Symptoms - Patient Data Vitals - Most Recent: Last Vital Signs Temp 36.8 C 03/01/21 05:29 Pulse 64 03/01/21 05:33 Resp 16 03/01/21 05:29 BP 121/85 03/01/21 05:29 Pulse Ox 92 L 03/01/21 05:33 Weight - Most Recent: 125.872 kg I&O - Last 24 Hours: Intake & Output 02/28/21 03/01/21 03/01/21 22:59 06:59 14:59 Intake Total 2489 500 Output Total 2200 1500 Balance 289 -1000 Lab Results Last 24 Hours: Laboratory Results - last 24 hr 02/28/21 02/28/21 02/28/21 Range/Units 08:07 08:07 08:10 WBC 7.03 (4.23-9.07) K/mm3 RBC 4.68 (4.63-6.08) M/mm3 Hgb 14.5 D (13.7-17.5) gm/dl Hct 41.7 (40.1-51.0) % MCV 89.1 (79.0-92.2) fl MCH 31.0 (25.7-32.2) pg MCHC 34.8 (32.2-35.5) g/dl RDW Std Deviation 41.5 (35.1-43.9) fL Plt Count 207 (163-337) K/mm3 MPV 9.3 L (9.4-12.3) fl Neut % (Auto) 68.2 H (34.0-67.9) % Lymph % (Auto) 22.8 (21.8-53.1) % [place] % (Auto) 8.5 (5.3-12.2) % Eos % (Auto) 0.1 L (0.8-7.0) Baso % (Auto) 0.1 (0.1-1.2) % Neut # (Auto) 4.79 (1.78-5.38) K/mm3 Lymph # (Auto) 1.60 (1.32-3.57) K/mm3 [place] # (Auto) 0.60 (0.30-0.82) K/mm3 Eos # (Auto) 0.01 L (0.04-0.54) K/mm3 Baso # (Auto) 0.01 (0.01-0.08) K/mm3 Manual Slide Review Abnormal smear Sodium 133 L (136-145) mEq/L Potassium 4.6 (3.5-5.1) mEq/L Chloride 97 L (98-107) mEq/L Carbon Dioxide 26 (21-32) mEq/L Anion Gap 14.6 (5-15) BUN 14 (7-18) mg/dL Creatinine 0.9 (0.7-1.3) mg/dL Est Cr Clr Drug Dosing 107.78 mL/min Estimated GFR (MDRD) > 60 (>60) mL/min BUN/Creatinine Ratio 15.6 (14-18) Glucose 263 H (70-99) mg/dL POC Glucose (70-99) mg/dL Hemoglobin A1c 9.5 H ( - 5.6) % Calcium 8.0 L (8.5-10.1) mg/dL Magnesium 1.8 (1.8-2.4) mg/dL Total Bilirubin 0.4 (0.2-1.0) mg/dL AST 29 (15-37) U/L ALT 59 (16-63) U/L Alkaline Phosphatase 62 (46-116) U/L C-Reactive Protein 6.8 H* (<1.0) mg/dL Total Protein 6.7 (6.4-8.2) g/dl Albumin 2.9 L (3.4-5.0) g/dl Globulin 3.8 gm/dL Albumin/Globulin Ratio 0.8 L (1-2) 02/28/21 02/28/21 03/01/21 Range/Units 16:46 20:46 04:50 WBC 9.90 H (4.23-9.07) K/mm3 RBC 4.79 (4.63-6.08) M/mm3 Hgb 14.6 (13.7-17.5) gm/dl Hct 42.4 (40.1-51.0) % MCV 88.5 (79.0-92.2) fl MCH 30.5 (25.7-32.2) pg MCHC 34.4 (32.2-35.5) g/dl RDW Std Deviation 41.4 (35.1-43.9) fL Plt Count 248 (163-337) K/mm3 MPV 9.5 (9.4-12.3) fl Neut % (Auto) 73.7 H (34.0-67.9) % Lymph % (Auto) 18.5 L (21.8-53.1) % [place] % (Auto) 6.9 (5.3-12.2) % Eos % (Auto) 0.3 L (0.8-7.0) Baso % (Auto) 0.2 (0.1-1.2) % Neut # (Auto) 7.30 H (1.78-5.38) K/mm3 Lymph # (Auto) 1.83 (1.32-3.57) K/mm3 [place] # (Auto) 0.68 (0.30-0.82) K/mm3 Eos # (Auto) 0.03 L (0.04-0.54) K/mm3 Baso # (Auto) 0.02 (0.01-0.08) K/mm3 Manual Slide Review Abnormal smear Sodium (136-145) mEq/L Potassium (3.5-5.1) mEq/L Chloride (98-107) mEq/L Carbon Dioxide (21-32) mEq/L Anion Gap (5-15) BUN (7-18) mg/dL Creatinine (0.7-1.3) mg/dL Est Cr Clr Drug Dosing mL/min Estimated GFR (MDRD) (>60) mL/min BUN/Creatinine Ratio (14-18) Glucose (70-99) mg/dL POC Glucose 382 H 312 H (70-99) mg/dL Hemoglobin A1c ( - 5.6) % Calcium (8.5-10.1) mg/dL Magnesium (1.8-2.4) mg/dL Total Bilirubin (0.2-1.0) mg/dL AST (15-37) U/L ALT (16-63) U/L Alkaline Phosphatase (46-116) U/L C-Reactive Protein (<1.0) mg/dL Total Protein (6.4-8.2) g/dl Albumin (3.4-5.0) g/dl Globulin gm/dL Albumin/Globulin Ratio (1-2) 03/01/21 03/01/21 Range/Units 04:50 05:27 WBC (4.23-9.07) K/mm3 RBC (4.63-6.08) M/mm3 Hgb (13.7-17.5) gm/dl Hct (40.1-51.0) % MCV (79.0-92.2) fl MCH (25.7-32.2) pg MCHC (32.2-35.5) g/dl RDW Std Deviation (35.1-43.9) fL Plt Count (163-337) K/mm3 MPV (9.4-12.3) fl Neut % (Auto) (34.0-67.9) % Lymph % (Auto) (21.8-53.1) % [place] % (Auto) (5.3-12.2) % Eos % (Auto) (0.8-7.0) Baso % (Auto) (0.1-1.2) % Neut # (Auto) (1.78-5.38) K/mm3 Lymph # (Auto) (1.32-3.57) K/mm3 [place] # (Auto) (0.30-0.82) K/mm3 Eos # (Auto) (0.04-0.54) K/mm3 Baso # (Auto) (0.01-0.08) K/mm3 Manual Slide Review Sodium 135 L (136-145) mEq/L Potassium 4.1 (3.5-5.1) mEq/L Chloride 99 (98-107) mEq/L Carbon Dioxide 29 (21-32) mEq/L Anion Gap 11.1 (5-15) BUN 18 (7-18) mg/dL Creatinine 1.0 (0.7-1.3) mg/dL Est Cr Clr Drug Dosing 97.00 mL/min Estimated GFR (MDRD) > 60 (>60) mL/min BUN/Creatinine Ratio 18.0 (14-18) Glucose 245 H (70-99) mg/dL POC Glucose 234 H (70-99) mg/dL Hemoglobin A1c ( - 5.6) % Calcium 8.4 L (8.5-10.1) mg/dL Magnesium (1.8-2.4) mg/dL Total Bilirubin 0.4 (0.2-1.0) mg/dL AST 24 (15-37) U/L ALT 54 (16-63) U/L Alkaline Phosphatase 66 (46-116) U/L C-Reactive Protein 3.6 H* (<1.0) mg/dL Total Protein 6.8 (6.4-8.2) g/dl Albumin 3.0 L (3.4-5.0) g/dl Globulin 3.8 gm/dL Albumin/Globulin Ratio 0.8 L (1-2) Med Orders - Current: Current Medications Acetaminophen (Acetaminophen 325 Mg Tab) 650 mg PO Q4H PRN PRN Reason: Pain (Mild 1-3)/fever Last Admin: 02/27/21 15:59 Dose: 650 mg Documented by: Albuterol/Ipratropium (Albuterol/Ipratropium 3.0-0.5 Mg/3 Ml Neb Soln) 3 ml NEB Q4H PRN PRN Reason: Shortness Of Breath/wheezing Allopurinol (Allopurinol 300 Mg Tab) 300 mg PO DAILY [facility] Last Admin: 02/28/21 10:52 Dose: Not Given Documented by: Dexamethasone (Dexamethasone 4 Mg Tab) 6 mg PO DAILY [facility] Last Admin: 02/28/21 10:52 Dose: Not Given Documented by: Docusate Sodium (Docusate Sodium 100 Mg Cap) 100 mg PO BID PRN PRN Reason: Constipation Enoxaparin Sodium (Enoxaparin 40 Mg/0.4 Ml Syringe) 40 mg SUBCUT DAILY [facility] Last Admin: 02/28/21 10:52 Dose: Not Given Documented by: Remdesivir 100 mg/ Sodium (Chloride) 100 mls @ 100 mls/hr IV Q24H [facility] Stop: 03/03/21 16:59 Last Admin: 02/28/21 16:36 Dose: 100 mls/hr Documented by: Azithromycin 500 mg/ Sodium (Chloride) 250 mls @ 250 mls/hr IV Q24H [facility] Last Admin: 02/28/21 17:45 Dose: 250 mls/hr Documented by: Insulin Human Lispro (Insulin Lispro 100 Unit/Ml 10 Ml Vial) 0 unit SUBCUT QIDACANDBED [facility]; Protocol Last Admin: 02/28/21 21:38 Dose: 8 units Documented by: Metformin HCl (Metformin 500 Mg Tab) 500 mg PO BIDMEALS [facility] Last Admin: 03/01/21 06:17 Dose: Not Given Documented by: Ondansetron HCl (Ondansetron 4 Mg Tab.Dis) 4 mg PO Q4H PRN PRN Reason: nausea, able to take PO Last Admin: 02/27/21 16:00 Dose: 4 mg Documented by: Oxycodone HCl (Oxycodone 5 Mg Tab) 5 mg PO Q4H PRN PRN Reason: Pain (moderate 4-6) Sodium Chloride (Sodium Chloride 0.9% 10 Ml Syringe) 10 ml FLUSH ASDIRECTED PRN PRN Reason: Keep Vein Open Last Admin: 02/27/21 12:57 Dose: 10 ml Documented by: Temazepam (Temazepam 15 Mg Cap) 15 mg PO BEDTIME PRN PRN Reason: Sleep Last Admin: 02/28/21 21:39 Dose: 15 mg Documented by: Zinc Sulfate (Zinc Sulfate 220 Mg Cap) 220 mg PO DAILY [facility] Last Admin: 02/28/21 10:52 Dose: Not Given Documented by: Discontinued Medications Dexamethasone (Dexamethasone 4 Mg Tab) 6 mg PO ONETIME ONE Stop: 02/27/21 12:57 Last Admin: 02/27/21 13:15 Dose: 6 mg Documented by: Remdesivir 200 mg/ Sodium (Chloride) 250 mls @ 250 mls/hr IV ONETIME ONE Stop: 02/27/21 16:29 Last Admin: 02/27/21 16:24 Dose: 250 mls/hr Documented by: Lactated Ringer's (Ringers, Lactated) 1,000 mls @ 125 mls/hr IV ASDIRECTED [facility] Last Admin: 02/28/21 01:28 Dose: 125 mls/hr Documented by: Lactated Ringer's (Ringers, Lactated) 1,000 mls @ 75 mls/hr IV ASDIRECTED [facility] Last Admin: 02/28/21 10:00 Dose: 75 mls/hr Documented by: Morphine Sulfate (Morphine 2 Mg/Ml Syringe) 2 mg IVPUSH Q2H PRN PRN Reason: Pain (severe 7-10) Stop: 02/28/21 14:19 Ondansetron HCl (Ondansetron 4 Mg/2 Ml Sdv) 4 mg IVPUSH ONETIME ONE Stop: 02/27/21 12:57 Last Admin: 02/27/21 13:15 Dose: 4 mg Documented by: - Exam Quality Assessment: DVT Prophylaxis. No: Supplemental Oxygen General: Alert, Oriented, Cooperative, No Acute Distress HEENT: Pupils Equal, Pupils Reactive, EOMI, Mucous Membr. Moist/[place] Neck: Supple, Trachea Midline Lungs: Clear to Auscultation, Normal Respiratory Effort Cardiovascular: Regular Rate, Regular Rhythm GI/Abdominal Exam: Normal Bowel Sounds, Soft, Non-Tender, No Distention (Male) Exam: Deferred Back Exam: Normal Inspection, Full Range of Motion Extremities: Normal Inspection, Normal Range of Motion, No Pedal Edema Skin: Warm, Dry, Intact Neurological: No New Focal Deficit, Normal Gait, Normal Speech, Normal Tone Psy/Mental Status: Alert, Normal Affect, Normal Mood - Patient Data Lab Results Last 24 hrs: Laboratory Results - last 24 hr 02/28/21 02/28/21 02/28/21 Range/Units 08:07 08:07 08:10 WBC 7.03 (4.23-9.07) K/mm3 RBC 4.68 (4.63-6.08) M/mm3 Hgb 14.5 D (13.7-17.5) gm/dl Hct 41.7 (40.1-51.0) % MCV 89.1 (79.0-92.2) fl MCH 31.0 (25.7-32.2) pg MCHC 34.8 (32.2-35.5) g/dl RDW Std Deviation 41.5 (35.1-43.9) fL Plt Count 207 (163-337) K/mm3 MPV 9.3 L (9.4-12.3) fl Neut % (Auto) 68.2 H (34.0-67.9) % Lymph % (Auto) 22.8 (21.8-53.1) % [place] % (Auto) 8.5 (5.3-12.2) % Eos % (Auto) 0.1 L (0.8-7.0) Baso % (Auto) 0.1 (0.1-1.2) % Neut # (Auto) 4.79 (1.78-5.38) K/mm3 Lymph # (Auto) 1.60 (1.32-3.57) K/mm3 [place] # (Auto) 0.60 (0.30-0.82) K/mm3 Eos # (Auto) 0.01 L (0.04-0.54) K/mm3 Baso # (Auto) 0.01 (0.01-0.08) K/mm3 Manual Slide Review Abnormal smear Sodium 133 L (136-145) mEq/L Potassium 4.6 (3.5-5.1) mEq/L Chloride 97 L (98-107) mEq/L Carbon Dioxide 26 (21-32) mEq/L Anion Gap 14.6 (5-15) BUN 14 (7-18) mg/dL Creatinine 0.9 (0.7-1.3) mg/dL Est Cr Clr Drug Dosing 107.78 mL/min Estimated GFR (MDRD) > 60 (>60) mL/min BUN/Creatinine Ratio 15.6 (14-18) Glucose 263 H (70-99) mg/dL POC Glucose (70-99) mg/dL Hemoglobin A1c 9.5 H ( - 5.6) % Calcium 8.0 L (8.5-10.1) mg/dL Magnesium 1.8 (1.8-2.4) mg/dL Total Bilirubin 0.4 (0.2-1.0) mg/dL AST 29 (15-37) U/L ALT 59 (16-63) U/L Alkaline Phosphatase 62 (46-116) U/L C-Reactive Protein 6.8 H* (<1.0) mg/dL Total Protein 6.7 (6.4-8.2) g/dl Albumin 2.9 L (3.4-5.0) g/dl Globulin 3.8 gm/dL Albumin/Globulin Ratio 0.8 L (1-2) 02/28/21 02/28/21 03/01/21 Range/Units 16:46 20:46 04:50 WBC 9.90 H (4.23-9.07) K/mm3 RBC 4.79 (4.63-6.08) M/mm3 Hgb 14.6 (13.7-17.5) gm/dl Hct 42.4 (40.1-51.0) % MCV 88.5 (79.0-92.2) fl MCH 30.5 (25.7-32.2) pg MCHC 34.4 (32.2-35.5) g/dl RDW Std Deviation 41.4 (35.1-43.9) fL Plt Count 248 (163-337) K/mm3 MPV 9.5 (9.4-12.3) fl Neut % (Auto) 73.7 H (34.0-67.9) % Lymph % (Auto) 18.5 L (21.8-53.1) % [place] % (Auto) 6.9 (5.3-12.2) % Eos % (Auto) 0.3 L (0.8-7.0) Baso % (Auto) 0.2 (0.1-1.2) % Neut # (Auto) 7.30 H (1.78-5.38) K/mm3 Lymph # (Auto) 1.83 (1.32-3.57) K/mm3 [place] # (Auto) 0.68 (0.30-0.82) K/mm3 Eos # (Auto) 0.03 L (0.04-0.54) K/mm3 Baso # (Auto) 0.02 (0.01-0.08) K/mm3 Manual Slide Review Abnormal smear Sodium (136-145) mEq/L Potassium (3.5-5.1) mEq/L Chloride (98-107) mEq/L Carbon Dioxide (21-32) mEq/L Anion Gap (5-15) BUN (7-18) mg/dL Creatinine (0.7-1.3) mg/dL Est Cr Clr Drug Dosing mL/min Estimated GFR (MDRD) (>60) mL/min BUN/Creatinine Ratio (14-18) Glucose (70-99) mg/dL POC Glucose 382 H 312 H (70-99) mg/dL Hemoglobin A1c ( - 5.6) % Calcium (8.5-10.1) mg/dL Magnesium (1.8-2.4) mg/dL Total Bilirubin (0.2-1.0) mg/dL AST (15-37) U/L ALT (16-63) U/L Alkaline Phosphatase (46-116) U/L C-Reactive Protein (<1.0) mg/dL Total Protein (6.4-8.2) g/dl Albumin (3.4-5.0) g/dl Globulin gm/dL Albumin/Globulin Ratio (1-2) 03/01/21 03/01/21 Range/Units 04:50 05:27 WBC (4.23-9.07) K/mm3 RBC (4.63-6.08) M/mm3 Hgb (13.7-17.5) gm/dl Hct (40.1-51.0) % MCV (79.0-92.2) fl MCH (25.7-32.2) pg MCHC (32.2-35.5) g/dl RDW Std Deviation (35.1-43.9) fL Plt Count (163-337) K/mm3 MPV (9.4-12.3) fl Neut % (Auto) (34.0-67.9) % Lymph % (Auto) (21.8-53.1) % [place] % (Auto) (5.3-12.2) % Eos % (Auto) (0.8-7.0) Baso % (Auto) (0.1-1.2) % Neut # (Auto) (1.78-5.38) K/mm3 Lymph # (Auto) (1.32-3.57) K/mm3 [place] # (Auto) (0.30-0.82) K/mm3 Eos # (Auto) (0.04-0.54) K/mm3 Baso # (Auto) (0.01-0.08) K/mm3 Manual Slide Review Sodium 135 L (136-145) mEq/L Potassium 4.1 (3.5-5.1) mEq/L Chloride 99 (98-107) mEq/L Carbon Dioxide 29 (21-32) mEq/L Anion Gap 11.1 (5-15) BUN 18 (7-18) mg/dL Creatinine 1.0 (0.7-1.3) mg/dL Est Cr Clr Drug Dosing 97.00 mL/min Estimated GFR (MDRD) > 60 (>60) mL/min BUN/Creatinine Ratio 18.0 (14-18) Glucose 245 H (70-99) mg/dL POC Glucose 234 H (70-99) mg/dL Hemoglobin A1c ( - 5.6) % Calcium 8.4 L (8.5-10.1) mg/dL Magnesium (1.8-2.4) mg/dL Total Bilirubin 0.4 (0.2-1.0) mg/dL AST 24 (15-37) U/L ALT 54 (16-63) U/L Alkaline Phosphatase 66 (46-116) U/L C-Reactive Protein 3.6 H* (<1.0) mg/dL Total Protein 6.8 (6.4-8.2) g/dl Albumin 3.0 L (3.4-5.0) g/dl Globulin 3.8 gm/dL Albumin/Globulin Ratio 0.8 L (1-2) Result Diagrams: 03/01/21 04:50 03/01/21 04:50 Sepsis Event Note - Evaluation Sepsis Screening Result: No Definite Risk - Focused Exam Vital Signs: Vital Signs Temp Pulse Resp BP Pulse Ox 03/01/21 05:33 64 92 L 03/01/21 05:29 36.8 C 16 121/85 02/28/21 23:44 36.4 C 16 112/72 02/28/21 21:50 89 92 L 02/28/21 21:41 36.6 C 16 131/94 H - Problem List & Annotations (1) Acute respiratory failure due to COVID-19 SNOMED Code(s): 277142519 Code(s): U07.1 - COVID-19; J96.00 - ACUTE RESPIRATORY FAILURE, UNSP W HYPOXIA OR HYPERCAPNIA Status: Resolved Priority: High Current Visit: Yes (2) Pneumonia due to 2019-nCoV SNOMED Code(s): 204750607592083451 Code(s): U07.1 - COVID-19; J12.82 - PNEUMONIA DUE TO CORONAVIRUS DISEASE 2019 Status: Acute Priority: High Current Visit: Yes (3) Hypovolemia associated with vomiting SNOMED Code(s): 55541055, 907345615 Code(s): E86.1 - HYPOVOLEMIA Status: Resolved Priority: High Current Visit: Yes (4) Hyponatremia SNOMED Code(s): 76456198 Code(s): E87.1 - HYPO-OSMOLALITY AND HYPONATREMIA Status: Acute Priority: High Current Visit: Yes (5) Gout SNOMED Code(s): 58299268 Code(s): M10.9 - GOUT, UNSPECIFIED Status: Chronic Priority: Medium Current Visit: Yes Qualifiers: Gout site: unspecified site Gout etiology: idiopathic Chronicity: chronic Presence of tophus: without tophus Qualified Code(s): M1A.00X0 - Idiopathic chronic gout, unspecified site, without tophus (tophi) - Problem List Review Problem List Initiated/Reviewed/Updated: Yes - My Orders Last 24 Hours: My Active Orders 02/28/21 09:00 Zinc Sulfate [Zincate] 220 mg PO DAILY allopurinoL [Zyloprim] 300 mg PO DAILY dexAMETHasone 6 mg PO DAILY 02/28/21 09:17 RT Chest Physiotherapy [RC] ASDIRECTED RT Incentive Spirometry [RC] Q1HWA 02/28/21 14:42 Blood Glucose Check, Bedside [RC] QIDACANDBED 02/28/21 16:00 Remdesivir 100 mg Sodium Chloride 0.9% [Normal Saline] 100 ml IV Q24H 02/28/21 Dinner Consistent Carbohydrate Diet [DIET] Insulin Lispro [HumaLOG] See Protocol SUBCUT QIDACANDBED metFORMIN [Glucophage] 500 mg PO BIDMEALS - Assessment Assessment:: The patient is a 50-year-old gentleman who will be continued in hospitalization until final dose of remdesivir. The patient will have his oxygen titrated to help maintain his saturations around 92%. The patient is on steroids dexamethasone 6 mg p.o. daily. He also has DVT prophylaxis with the use of Lovenox 40 mg daily. The patient is also to continue his current diet as tolerated. The patient has been encouraged to ambulate. He should be appropriate for discharge in 3 to 4 days. 03/01/2021 The patient is a 50-year-old gentleman who has stated that he will likely leave hospitalization today. I have advised against this due to the fact that the patient needs to complete course of remdesivir as a standard of care. Additionally, the patient could benefit from assistant health educator considering new diagnosis of diabetes mellitus type 2. Regardless, the patient has been recommended to follow-up with his primary care physician. If the patient decides to remain repeat laboratory studies will be ordered for the morning. The patient will also be continued on remdesivir and steroids for now. He has been encouraged to ambulate. He will have a diabetic diet as tolerated. - Plan Plan:: Patient is a 50-year-old gentleman who has been admitted to acute hospitalization secondary to COVID-19 pneumonia. The patient will be started on remdesivir 200 mg IV x1 dose now followed by 100 mg IV for 4 doses. The patient also has been started on dexamethasone 6 mg p.o. daily. Because of the patient's dehydration and hyponatremia he will be started on lactated Ringer's at 125 mL/h. I have also ordered Zofran to help with his nausea and vomiting. He will be kept on a regular diet as tolerated. The patient also has been started on a azithromycin out of concern for superimposed bacterial infection over his COVID-19 pneumonia. The patient will be afforded DVT prophylaxis with the use of Lovenox. I have also ordered repeat laboratory studies for tomorrow.
[2021-03-01] MEDS: Insulin Lispro 100 UNIT/ML 10 ML Vial SUBCUT SCH ×2 (07:59→11:44)
[2021-03-01] MEDS: Allopurinol 300 MG Tab PO SCH (08:00)
[2021-03-01] MEDS: Zinc Sulfate 220 MG Cap PO SCH (08:00)
[2021-03-01] MEDS: Enoxaparin 40 MG/0.4 ML Syringe SUBCUT SCH (08:01)
[2021-03-01] MEDS: Dexamethasone 4 MG Tab PO SCH (08:01)
[2021-03-01] MEDS: REMDESIVIR 100 MG in Sodium Chloride 0.9% 100 ML IV SCH (12:05)
[2021-03-01] MEDS: Azithromycin 500 MG in Sodium Chloride 0.9% 250 ML IV SCH (13:19)
--- NOTE | 2021-03-02 13:14 | PCM.DCSUM1 ---
Discharge Summary - Hospital Course Diagnosis: Stroke: No - Discharge Data Discharge Date: 03/01/21 Discharge Disposition: Against Medical Advice 07 Condition: Good - Referral to Home Health Primary Care Physician: Eric Pinon MD - Discharge Diagnosis/Problem(s) (1) Acute respiratory failure due to COVID-19 SNOMED Code(s): 466964164 ICD Code: U07.1 - COVID-19; J96.00 - ACUTE RESPIRATORY FAILURE, UNSP W HYPOXIA OR HYPERCAPNIA Status: Resolved Priority: High (2) Pneumonia due to 2019-nCoV SNOMED Code(s): 903053583744217120 ICD Code: U07.1 - COVID-19; J12.82 - PNEUMONIA DUE TO CORONAVIRUS DISEASE 2019 Status: Acute Priority: High (3) Hypovolemia associated with vomiting SNOMED Code(s): 29580608, 915019273 ICD Code: E86.1 - HYPOVOLEMIA Status: Resolved Priority: High (4) Hyponatremia SNOMED Code(s): 48615055 ICD Code: E87.1 - HYPO-OSMOLALITY AND HYPONATREMIA Status: Acute Priority: High (5) Gout SNOMED Code(s): 21918249 ICD Code: M10.9 - GOUT, UNSPECIFIED Status: Chronic Priority: Medium Qualifiers: Gout site: unspecified site Gout etiology: idiopathic Chronicity: chronic Presence of tophus: without tophus Qualified Code(s): M1A.00X0 - Idiopathic chronic gout, unspecified site, without tophus (tophi) - Patient Summary/Data Consults: Consultations 03/01/21 07:09 Consult to Diabetic Nurse Specialist [CONS] Routine Hospital Course: The patient is an otherwise healthy 50-year-old gentleman who tested positive at home for COVID-19. Since that time patient has gotten progressively worse. He has been complaining of more fatigue. The patient also says that he has been feeling weak with severe nausea and vomiting. He also has been complaining of sinus pain and pressure to accompany this. The patient says that he has also had fever and chills associated with this. The patient has been advised to stay in hospital to continue remdesivir. He has had a family emergency at home and is requested to sign out AGAINST MEDICAL ADVICE. The patient left at 1444 on March 01, 2021. - Discharge Plan Home Medications: Home Meds Allopurinol [Zyloprim] 300 mg PO DAILY 02/27/21 [History] Forms: ED Department Discharge Referrals: Eric Denise MD [Primary Care Provider] - - Discharge Summary/Plan Comment DC Time >30 min.: No Total # of Minutes for Discharge Time: 15 - Patient Data Vitals - Most Recent: Last Vital Signs Temp 36.6 C 03/01/21 08:15 Pulse 66 03/01/21 08:15 Resp 20 03/01/21 08:15 BP 117/82 03/01/21 08:15 Pulse Ox 92 L 03/01/21 05:33 Weight - Most Recent: 125.872 kg Med Orders - Current: Current Medications Discontinued Medications Acetaminophen (Acetaminophen 325 Mg Tab) 650 mg PO Q4H PRN PRN Reason: Pain (Mild 1-3)/fever Last Admin: 02/27/21 15:59 Dose: 650 mg Documented by: Albuterol/Ipratropium (Albuterol/Ipratropium 3.0-0.5 Mg/3 Ml Neb Soln) 3 ml NEB Q4H PRN PRN Reason: Shortness Of Breath/wheezing Allopurinol (Allopurinol 300 Mg Tab) 300 mg PO DAILY [facility] Last Admin: 03/01/21 08:00 Dose: 300 mg Documented by: Dexamethasone (Dexamethasone 4 Mg Tab) 6 mg PO ONETIME ONE Stop: 02/27/21 12:57 Last Admin: 02/27/21 13:15 Dose: 6 mg Documented by: Dexamethasone (Dexamethasone 4 Mg Tab) 6 mg PO DAILY [facility] Last Admin: 03/01/21 08:01 Dose: 6 mg Documented by: Docusate Sodium (Docusate Sodium 100 Mg Cap) 100 mg PO BID PRN PRN Reason: Constipation Enoxaparin Sodium (Enoxaparin 40 Mg/0.4 Ml Syringe) 40 mg SUBCUT DAILY [facility] Last Admin: 03/01/21 08:01 Dose: 40 mg Documented by: Remdesivir 200 mg/ Sodium (Chloride) 250 mls @ 250 mls/hr IV ONETIME ONE Stop: 02/27/21 16:29 Last Admin: 02/27/21 16:24 Dose: 250 mls/hr Documented by: Remdesivir 100 mg/ Sodium (Chloride) 100 mls @ 100 mls/hr IV Q24H [facility] Stop: 03/03/21 16:59 Last Admin: 03/01/21 12:05 Dose: 100 mls/hr Documented by: Azithromycin 500 mg/ Sodium (Chloride) 250 mls @ 250 mls/hr IV Q24H [facility] Last Admin: 03/01/21 13:19 Dose: 250 mls/hr Documented by: Lactated Ringer's (Ringers, Lactated) 1,000 mls @ 125 mls/hr IV ASDIRECTED [facility] Last Admin: 02/28/21 01:28 Dose: 125 mls/hr Documented by: Lactated Ringer's (Ringers, Lactated) 1,000 mls @ 75 mls/hr IV ASDIRECTED [facility] Last Admin: 02/28/21 10:00 Dose: 75 mls/hr Documented by: Insulin Human Lispro (Insulin Lispro 100 Unit/Ml 10 Ml Vial) 0 unit SUBCUT QIDACANDBED [facility]; Protocol Last Admin: 03/01/21 11:44 Dose: 6 units Documented by: Metformin HCl (Metformin 500 Mg Tab) 500 mg PO BIDMEALS [facility] Last Admin: 03/01/21 06:17 Dose: Not Given Documented by: Morphine Sulfate (Morphine 2 Mg/Ml Syringe) 2 mg IVPUSH Q2H PRN PRN Reason: Pain (severe 7-10) Stop: 02/28/21 14:19 Ondansetron HCl (Ondansetron 4 Mg/2 Ml Sdv) 4 mg IVPUSH ONETIME ONE Stop: 02/27/21 12:57 Last Admin: 02/27/21 13:15 Dose: 4 mg Documented by: Ondansetron HCl (Ondansetron 4 Mg Tab.Dis) 4 mg PO Q4H PRN PRN Reason: nausea, able to take PO Last Admin: 02/27/21 16:00 Dose: 4 mg Documented by: Oxycodone HCl (Oxycodone 5 Mg Tab) 5 mg PO Q4H PRN PRN Reason: Pain (moderate 4-6) Sodium Chloride (Sodium Chloride 0.9% 10 Ml Syringe) 10 ml FLUSH ASDIRECTED PRN PRN Reason: Keep Vein Open Last Admin: 02/27/21 12:57 Dose: 10 ml Documented by: Temazepam (Temazepam 15 Mg Cap) 15 mg PO BEDTIME PRN PRN Reason: Sleep Last Admin: 02/28/21 21:39 Dose: 15 mg Documented by: Zinc Sulfate (Zinc Sulfate 220 Mg Cap) 220 mg PO DAILY [facility] Last Admin: 03/01/21 08:00 Dose: 220 mg Documented by:
== END 2021-03-01 14:44 | disposition left against medical advice (07) | DRG 137 ==
LOC: JD.ED 11:34 → JD.MS 14:19
PROVIDERS: ADMIT Internal Medicine; ATTEND Internal Medicine
PROC: XW033E5 Introduction of Remdesivir Anti-infective into Peripheral Vein, Percutaneous Approach, New Technology Group 5 (ICD-10-PCS; principal; 2021-02-27)
PROC: 3E0DX3Z Introduction of Anti-inflammatory into Mouth and Pharynx, External Approach (ICD-10-PCS; 2021-02-27)
DX: U07.1 COVID-19 (principal); J12.82 Pneumonia due to coronavirus disease 2019; E87.1 Hypo-osmolality and hyponatremia; M1A.00X0 Idiopathic chronic gout, unspecified site, without tophus (tophi); E86.1 Hypovolemia; E86.0 Dehydration; J96.01 Acute respiratory failure with hypoxia; E11.9 Type 2 diabetes mellitus without complications; Z88.0 Allergy status to penicillin
CPT/HCPCS: 36415; 71045; 71045-26; 80053; 82947; 83036; 83735; 83880; 84484; 85025; 85379; 86140; 93005; 94667; 94668; 94762; 96374; 99285-25; A9270-GY; J0456; J1650; J1815-GY; J2405; J7050; J7120; J8540; U0002

== ENCOUNTER 2024-11-11 15:30 | Emergency (ER) | payer BC ==
[2024-11-11 16:23] LABS: APPEARANCE,URINE CLEAR (Clear); BILIRUBIN,URINE NEGATIVE (Negative); COLOR,URINE YELLOW (Yellow); GLUCOSE,URINE NEGATIVE (Negative); KETONES,URINE NEGATIVE (Negative); LEUKOCYTE ESTERASE,URINE NEGATIVE (Negative); NITRITE,URINE NEGATIVE (Negative); OCCULT BLOOD,URINE TRACE-LYSED (Negative); PROTEIN,URINE NEGATIVE (Negative); UROBILINOGEN,URINE 0.2 (0.2-1.0)
[2024-11-11 16:37] LABS: BACTERIA,URINE FEW /hpf (FEW); EPITHELIAL CELLS,URINE 0-5 /hpf (0-5); MUCUS,URINE FEW /hpf (FEW); RBC,URINE 0-5 /hpf (0-5); WBC,URINE 0-5 /hpf (0-5)
== END 2024-11-11 16:40 | disposition home or self-care (01) ==
LOC: JD.ED 15:30
DX: R10.30 Lower abdominal pain, unspecified (principal); R31.9 Hematuria, unspecified; Z88.0 Allergy status to penicillin; Z86.16 Personal history of COVID-19
CPT/HCPCS: 74018; 74018-26; 81001; 99284